=== PATIENT | female | born 1950 | race Caucasian/White ===

== ENCOUNTER → 2019-07-13 | Outpatient (CLI) | payer MEDICARE ==
--- NOTE | 2019-07-13 15:33 | PCVCIMAG ---
EXAM: BILATERAL CAROTID DUPLEX INDICATION: Carotid Occlusive Disease. Carotid bruit. FINDINGS: Doppler Measurements (centimeters per second): RIGHT: Peak CCA-52, Peak ECA-53, Diastolic ICA-24, Peak ICA-74, ICA/CCA Ratio-1.4. LEFT: Peak CCA-79, Peak ECA-50, Diastolic ICA-22, Peak ICA-81, ICA/CCA Ratio-1.0. RIGHT CAROTID: The carotid bulb has mild plaque. The proximal internal carotid artery shows <40% stenosis. The common carotid artery shows no significant stenosis. The external carotid artery shows no significant stenosis. LEFT CAROTID: The carotid bulb has mild plaque. The proximal internal carotid artery shows <40% stenosis. The common carotid artery shows no significant stenosis. The external carotid artery shows no significant stenosis. Antegrade flow in both vertebral arteries. IMPRESSION: <40% stenosis of the right internal carotid artery with mild plaque. <40% stenosis of the left internal carotid artery with mild plaque. LOC:[place] [id number]
--- NOTE | 2019-07-13 16:49 | PCVCIMAG ---
APPROVED REPORT Study performed: 07/13/2019 15:41:25 Exam: Stress Echocardiogram Indication: Palpitations, Bradycardia Patient Location: Echo lab Stress Nurse: Loree Hoskins RN Status: routine Ht: 5 ft 4 in HR: 58 bpm BP: 140/80 mmHg Rhythm: NSR Medical History Medical History: Smoking Procedure The patient underwent an Exercise Stress Test using the Milind Protocol. Blood pressure, heart rate, and EKG were monitored. An Echocardiogram was performed by automotive tire technician in four stages in quad fashion. At peak stress, four selected images were obtained and placed side by side with resting images for comparison. Stress Test Details Stress Test: Exercise stress testing was performed using a Milind protocol. HR Resting HR: 58 bpmMax Heart Rate (APMHR): 149 bpm Max HR Achieved: 139 bpmTarget HR (85% APMHR): 126 bpm % of APMHR: 93 Recovery HR: 83 bpm HR response to stress: Normal HR response to stress BP Resting BP: 140/80 mmHg Max BP: 190/80 mmHg Recovery BP: 142/78 mmHg BP response to stress: Normal blood pressure response to stress. ECG Resting ECG: Sinus Rhythm Stress ECG: Clear Recovery ECG: Sinus Rhythm Clinical Reason for Termination: Maximal effort Exercise duration: 5 min 16 sec Highest Stage Achieved: Stage 2: 2.5 mph at 12% grade. Exercise capacity: 7.00 METs Overall Exercise Capacity for Age: Normal Pre-Stress Echo The resting Echocardiogram showed normal left ventricular contractility with an estimated Ejection Fraction of about >55%. Normal wall motion in all segments on baseline images. Post-Stress Echo The stress Echocardiogram showed normal left ventricular contractility with an estimated Ejection Fraction of about 60-65%. Normal augmentation of wall motion in all segments on post stress images. Clinical No clinical or ECG evidence for ischemia. Conclusion Clinical Response: Non-ischemic Exercise Capacity: Average Stress ECG Response: Non-ischemic Stress Echo Images: Non-ischemic The left ventricle is normal in size and wall thickness in both the rest and stress images. Other Information Study Quality: Good <Conclusion> The left ventricle is normal in size and wall thickness in both the rest and stress images.
== END | disposition home or self-care (01) ==
LOC: PCVCIMAG 14:20
PROVIDERS: ATTEND Internal Medicine Cardiovascular Disease
DX: I65.23 Occlusion and stenosis of bilateral carotid arteries (principal); F17.200 Nicotine dependence, unspecified, uncomplicated
CPT/HCPCS: 93325; 93351; 93880